=== PATIENT | male | born 1970 | race Caucasian/White ===

== ENCOUNTER 2016-09-10 19:15 | Emergency (ER) | payer OTHER ==
[~2016-09-10] VITALS: Ht 182.9 cm; Wt 113.4 kg
--- NOTE | 2016-09-10 21:17 | ED GI/GU/ABDOMINAL COMPLAINT ---
History of Present Illness General Chief Complaint: General Adult Stated Complaint: "?UTI, BLOOD IN URINE" PER PT Source: patient Exam Limitations: no limitations Allergies Coded Allergies: Penicillins (HIVES 09/10/16) Reconcile Medications Albuterol Sulfate (Ventolin Hfa) 90 MCG HFA.AER.AD 2 PUF INH PRN ASTHMATIC BRONCHITIS (Reported) Aspirin (Ecotrin*) 81 MG TABLET.DR 1 TAB PO DAILY HEART/BLOOD (Reported) Atenolol 25 MG TABLET 1 TAB PO DAILY BP/HEART (Reported) Ciprofloxacin HCl (Cipro) 500 MG TABLET 1 TAB PO BID INFECTION Fenofibrate Nanocrystallized (Fenofibrate) 145 MG TABLET 1 TAB PO DAILY TRIGLYCERIDES/CHOLESTEROL (Reported) Ibuprofen 800 MG TABLET 1 TAB PO TID PRN PAIN Lisinopril 10 MG TABLET 1 TAB PO DAILY BP (Reported) Metformin HCl 500 MG TABLET 1 TAB PO BID DM (Reported) Oxycodone HCl/Acetaminophen (Percocet 5-325 MG Tablet) 5 MG-325 MG TABLET 1 TAB PO Q4-6 PRN BREAKTHROUGH PAIN Rosuvastatin Calcium (Crestor) 20 MG TABLET 1 TAB PO DAILY CHOLESTEROL ( Reported) Triage Note: PT STATES HE IS BLEEDING WHEN HE URINATES.. PT HAS KIDNEY STONES PER PCP. PT STATES THAT HE HAS BILATERAL LOWER BACK PAIN 04/05. PT ALSO C/O ABD CRAMPING Triage Nurses Notes Reviewed? yes Onset: Abrupt Duration: day(s): (4), constant, continues in ED Timing: recent history Quality/Severity: moderate, sharpness, severe Activities at Onset: none No Modifying Factors: none HPI: 45-year-old male comes into emergency room for evaluation of right flank pain wrapping around to her abdomen has been going on for the past 4 days. Some general upper abdominal pain. Some sweating. Patient reports that today he started to notice some blood in his urine and it was thick and stringy. Denies any chest pain or shortness of breath. Some increased frequency and burning with urination for the past few days. Blood began today. (AKILAH GONZALEZ) Vital Signs & Intake/Output Vital Signs & Intake/Output Vital Signs Date Time Temp Pulse Resp B/P Pulse O2 O2 Flow FiO2 Ox Delivery Rate 09/11 0254 97.6 88 20 142/84 97 Room Air 09/11 0012 Room Air Room Air 09/10 2243 89 18 146/87 97 Room Air 09/10 1942 96.4 120 18 159/107 97 Room Air ED Intake and Output 09/11 0000 09/10 1200 Intake Total Output Total Balance Patient 250 lb Weight Past History Travel History Traveled to [place] past 21 day No Medical History Any Pertinent Medical History? see below for history Cardiovascular: hypertension, STENTS HLD Endocrine: diabetes Surgical History Surgical History: none Psychosocial History What is your primary language Liberian Tobacco Use: Quit >30 days ago Family History Hx Contributory? No (AKILAH GONZALEZ) Review of Systems Review of Systems Constitutional: Reports: no symptoms. EENTM: Reports: no symptoms. Respiratory: Reports: no symptoms. Cardiovascular: Reports: no symptoms. GI: Reports: see HPI. Genitourinary: Reports: see HPI. Musculoskeletal: Reports: no symptoms. Skin: Reports: no symptoms. Neurological/Psychological: Reports: no symptoms. Hematologic/Endocrine: Reports: no symptoms. Immunologic/Allergic: Reports: no symptoms. All Other Systems: Reviewed and Negative (AKILAH GONZALEZ) Physical Exam Physical Exam General Appearance: well developed/nourished, no apparent distress, alert, awake Head: atraumatic, normal appearance Eyes: Bilateral: normal appearance, EOMI. Ears, Nose, Throat, Mouth: hearing grossly normal, moist mucous membrane Neck: normal inspection, full range of motion Respiratory: normal breath sounds, no respiratory distress Cardiovascular: regular rate/rhythm Gastrointestinal: soft, non-tender Back: CVA tenderness (R) Extremities: normal range of motion Neurologic/Psych: awake, alert, oriented x 3, normal gait, normal mood/affect Skin: intact, normal color Core Measures ACS in differential dx? No Severe Sepsis Present: No Septic Shock Present: No (AKILAH GONZALEZ) Progress Differential Diagnosis: appendicitis, biliary colic, bowel obstruction, cholecystitis, diverticulitis, gastritis, hepatitis, pancreatitis, prostatitis, peptic ulcer, PUD/GERD, perforated viscous, pyelonephritis, STD, testicular torsion, ureterolithiasis, urinary retention, urethritis, UTI/pyelo Plan of Care: Orders Procedure Date/time Status TROPONIN LEVEL 09/11 2115 Complete COMPREHENSIVE METABOLIC PANEL 09/11 2115 Complete CBC WITHOUT DIFFERENTIAL 09/11 2115 Complete EKG 09/11 2115 Active URINALYSIS 03/17 1927 Complete Laboratory Tests 09/10/16 2145: Anion Gap 15, Estimated GFR > 60, BUN/Creatinine Ratio 20.0, Glucose 179 H, Calcium 9.5, Total Bilirubin 0.9, AST 58, ALT 111 H, Alkaline Phosphatase 57, Troponin I < 0.01, Total Protein 7.8, Albumin 4.6, Globulin 3.2, Albumin/ Globulin Ratio 1.4, CBC w Diff NO MAN DIFF REQ, RBC 5.18, MCV 87.3, MCH 28.9, RDW 13.1, MPV 8.0, Gran % 80.1 H, Lymphocytes % 10.0 L, Monocytes % 7.9, Eosinophils % 1.7, Basophils % 0.3, Absolute Granulocytes 12.0 H, Absolute Lymphocytes 1.5, Absolute Monocytes 1.2 H, Absolute Eosinophils 0.3, Absolute Basophils 0, PUBS MCHC 33.1 09/10/162002: Urine Color BLDY H, Urine Clarity TURBD H, Urine pH 7.5, Ur Specific Ramona 1.020, Urine Protein >=300 H, Urine Ketones NEG, Urine Nitrite POS H, Urine Bilirubin NEG, Urine Urobilinogen 0.2, Ur Leukocyte Esterase TRACE H, Ur Microscopic SEDIMENT EXAMINED, Urine RBC PACKD H, Micro UA Comment MORE INFO: H, Urine Hemoglobin MOD H, Urine Glucose 250 H 12:[address] scan of abd/pelvis. 2:46 AM PATIENT ARRIVED BACK FROM [facility]. CT results discussed with the patient. Currently asymptomatic. Previous problems with prostatitis. Will follow up with Dr. Angel in the office. (NATI KENT MD) Diagnostic Imaging: Viewed by Me: CT Scan. Discussed w/RAD: CT Scan. Initial ED EKG: none Hand-Off Endorsed To: NATI KENT MD Endorsed Time: 30 Pending: CT (AKILAH GONZALEZ) Radiology Impression: 3:45 AM 6 MM NONOBSTRUCTING LEFT RENAL CALCULUS NO OBSTRUCTIVE UROPATHY SIGNIFICANT THICKENING OF BLADDER TO 1.5 CM MILD COLONIC DIVERTICULOSISI NO DIVERTICULITIS DIFFUSE FATTY INFILTRATION OF LIVER (NATI KENT MD) Departure Departure Condition: Stable Departure Forms: Customer Survey General Discharge Information Prescriptions: Current Visit Scripts Ciprofloxacin HCl (Cipro) 1 TAB PO BID #14 TAB Ibuprofen 1 TAB PO TID PRN PAIN #20 TAB Oxycodone HCl/Acetaminophen (Percocet 5-325 MG Tablet) 1 TAB PO Q4-6 PRN BREAKTHROUGH PAIN #10 TAB (AKILAH GONZALEZ) Departure Time of Disposition: 345 Disposition: HOME OR SELF CARE Clinical Impression Primary Impression: Hematuria Secondary Impressions: Renal stone Referrals: YASSINE TOMAS,MATTIE CHI MD,HERMAN De Anda (PCP/Family) Additional Instructions: Take the antibiotic as directed. Drink plenty of fluids. Please follow-up with the urology specialist listed. Return to the ER for any changing or worsening symptoms. PA/DIRECTOR ASSET Co-Sign Statement Statement: ED Attending supervision documentation- [x] I saw and evaluated the patient. I have also reviewed all the pertinent lab results and diagnostic results. I agree with the findings and the plan of care as documented in the PA's/DIRECTOR ASSET's documentation. [x] I have reviewed the ED Record and agree with the PA's/DIRECTOR ASSET's documentation. [] Additions or exceptions (if any) to the PAs/DIRECTOR ASSET's note and plan are summarized below: [] (DONTE TOMAS,NATI) ED Attending Observation Initial Observation Note: I have seen and personally examined SHERIE CENTENO on 09/13/16 at 0949. I agree with the current emergency department documentation. The disposition (admission or discharge) is uncertain at this time, he needs a period of observation for the following reason(s): The ED Nurse caring for this patient has been personally informed as to what the patient is being observed for. (DONTE TOMAS,NATI)
[2016-09-10] MEDS ORDERED: ATENOLOL25 M1 PO (22:01)
[2016-09-10] MEDS ORDERED: METFORMIN HCL500 M3 PO (22:01)
[2016-09-10 22:02] LABS: ABSOLUTE BASOPHIL COUNT 0 /CUMM (0.0-0.2); ABSOLUTE EOSINOPHIL COUNT 0.3 /CUMM (0.0-0.7); ABSOLUTE LYMPH COUNT 1.5 /CUMM (1.2-3.4); ABSOLUTE MONOCYTE COUNT 1.2 /CUMM (0.10-0.60); BASOPHIL % 0.3 % (0.0-2.0); EOSINOPHIL % 1.7 % (0-5); GRANULOCYTE % 80.1 % (42.2-75.2); HEMATOCRIT 45.2 % (42-52); MEAN CORPUSCULAR HGB 28.9 PG (27.0-31.0); MEAN CORPUSCULAR HGB CONC 33.1 G/DL (33.0-37.0); MEAN CORPUSCULAR VOLUME 87.3 FL (80.0-94.0); PLATELET COUNT 285 /CUMM (130-400); RBC DISTRIBUTION WIDTH 13.1 % (11.5-14.5); RED BLOOD CELL CT 5.18 /CUMM (4.70-6.10)
[2016-09-10] MEDS ORDERED: LISINOPRIL10 M1 PO (22:02)
[2016-09-10] MEDS ORDERED: FENOFIBRATE145 M1 PO (22:02)
[2016-09-10] MEDS ORDERED: ASPIRIN EC81 M1 PO (22:02)
[2016-09-10] MEDS ORDERED: CRESTOR20 M2 PO (22:03)
[2016-09-10] MEDS ORDERED: VENTOLIN HFA18 GM INH (22:03)
[2016-09-11 02:54] VITALS: BP 142/84
[2016-09-11] MEDS ORDERED: CIPRO500 M1 PO (03:47)
[2016-09-11] MEDS ORDERED: PERCOCET 5-3251 EACH PO (03:48)
[2016-09-11] MEDS ORDERED: IBUPROFEN800 M1 PO (03:48)
== END 2016-09-11 03:52 ==
LOC: ERH 19:15
PROVIDERS: Physician Assistant Medical
DX: N20.0 Calculus of kidney (principal)
CPT/HCPCS: 81001; 93005; 93010; 96374; J0696; J1885

== ENCOUNTER → 2016-10-14 | Day surgery (SDC) | payer OTHER ==
[~2016-10-14] VITALS: Ht 180.3 cm; Wt 115.7 kg
[~2016-10-14] MED LIST: ASPIRIN EC81 M1 PO; ATENOLOL25 M1 PO; CIPRO500 M1 PO; CRESTOR20 M2 PO; FENOFIBRATE145 M1 PO; IBUPROFEN800 M1 PO; LISINOPRIL10 M1 PO; METFORMIN HCL500 M3 PO; PERCOCET 5-3251 EACH PO; VENTOLIN HFA18 GM INH
--- NOTE | 2016-10-14 20:51 | Operative Report ---
Operative/Inv Procedure Report Surgery Date: 10/14/16 Name of Procedure: Left renal ESWL, fluoroscopy. Cystoscopy, initial dilatation of bulbar urethral stricture. Insertion of 20 [place] tip catheter. Pre-Operative Diagnosis: Left renal stone. Severely distended bladder with thick and irregular bladder musculature. Post-Operative Diagnosis: Same Estimated Blood Loss: scant Surgeon/Foam Cutting Supervisor: MATTIE METZGER MD Anesthesia: laryngeal mask airway Drains: 20 [place] dry [place] tip Betts Complications: None Condition: Improved Operative/Procedure Note Note: The patient was taken to the operating room and placed on the ESWL table in supine position. With the patient awake and participating, timeout was performed to confirm correct identity, procedure, laterality, anesthesia, and other pertinent emily-operative information. After adequate anesthesia, the patient was positioned so that the patient's left flank was positioned over the table cut-out, overlying the dome of the treatment head. Once the patient was adequately sedated, fluoroscopy, as well as Renal ultrasound was used to locate the LEFT renal stone. Renal US confirmed the presence of the stone which measured it to be approximately 7 mm upper pole stone. The stone was faintly visible with fluoroscopy. Renal US revealed, no hydronephrosis, and no solid tumor, and presence of the stone. The position of the stone was optimized by using fluoroscopy in AP and oblique views;placing the stone within the ESWL c- arm crosshairs. Once the stone's position was optimized, the LEFT renal E.S.W.L. was initiated at low energy level. After noting the patient's tolerance to the shockwaves, the intensitiy was ramped up to maximum level. At the end of the procedure, the left renal stone had dissintegrated. Of note, a total of 2500 shockwaves were delivered to the stone. The patient was then frog legged, draped and prepped in the usual surgical fashion. A 22 Niuean cystoscope sheath with 30 angle lens was inserted into the urethra, whereupon the bulbar urethral stricture was clearly visible. A 0.038 Glidewire was inserted through the cystoscope, and through the narrow aperture of the urethral stricture without significant difficulty. The cystoscope was removed leaving the Glidewire in place. Sequential dilatation of the urethral stricture was performed using the 17 Niuean, 19 Niuean, 22 Niuean, and 25 Niuean sheath under direct visualization with a 30 angle lens. Upon finally entering the bladder, the bladder was noted to be free of tumor free of stone, but severely dilated, and severely trabeculated. Visualization was very poor due to sudden decompression hemorrhage of the bladder mucosa. The bladder was left full, and the cystoscope was then removed, once again leaving the Glidewire in place. A 20 [place] tip catheter was railroaded over the Glidewire, and advanced into the bladder without significant difficulty. 10 mL of sterile water was placed into the balloon. The patient tolerated the procedures well, was awakened, then taken to recovery in satisfactory condition via stretcher. The patient was dischared home with pain medications, antibiotics diet orders, and use of Betts catheter instructions. The patient to to have follow-up cystoscopy, and removal of Betts 1 to 2 weeks. Findings: Pinpoint bulbar urethral stricture, with severely trabeculated bladder. Discharge Disposition: PACU Additional Comments: Patient is to have follow-up in the office for cystoscopy once again as completely visualization was obscured due to large amount of hematuria. CC: MATTIE METZGER MD
== END ==
LOC: STS 01:46
DX: N20.0 Calculus of kidney (principal); N35.9 Urethral stricture, unspecified; N32.89 Other specified disorders of bladder; I10 Essential (primary) hypertension; E11.9 Type 2 diabetes mellitus without complications; Z79.84 Long term (current) use of oral hypoglycemic drugs; I25.10 Atherosclerotic heart disease of native coronary artery without angina pectoris
CPT/HCPCS: J2250